=== PATIENT | female | born 1970 | race Caucasian/White ===

== ENCOUNTER 2020-05-30 23:30 | Emergency (ER) | payer OTHER ==
[~2020-05-30] VITALS: Ht 162.6 cm; Wt 94.5 kg
[2020-05-30] MEDS ORDERED: ASPIRIN CHEWABLE 81 MG TABLET. PO ONE (23:45)
[2020-05-30] MEDS ORDERED: NITROGLYCERIN SUBLINGUAL 0.4 MG BOTTLE OF 25. SL PRN (23:45)
--- NOTE | 2020-05-30 23:53 | PHYS DOC ---
Past History Past Medical History: CAD, Hypertension Adult General Chief Complaint Chief Complaint: CHEST PAIN HPI HPI Patient is a 50-year-old female presenting for chest pressure. Onset was earlier this morning after waking up while resting. Nothing known makes better or worse. Patient denies any pain but admits pressure over her left breast that radiates into her left jaw and left shoulder. Reports severity is 6/10 in severity but has improved with rest in our ER down to 4/10 in severity. Timing of symptoms has been constant since onset. States she has had similar chest pressure episodes for preceding "months", states she suffers these " a couple times a week" with each episode lasting less than 30 minutes and typically resolves with rest. Physical exertion does not make worse, she does not know any other propagating factors. Shannan had numerous stress tests with last performed approximately 5 years ago and unremarkable. Known CAD per heart catheterization performed 2013 without active intervention performed, this was done at [facility]. Has distant history of tobacco abuse in addition to positive family cardiac history. Episode today lasted longer than usual which concerned her and did not go away after 81 mg of aspirin prompting her to come to our facility for evaluation. Associated symptoms include shortness of breath during episodes and nausea. Denies Covid contact, fever, syncope, lightheadedness, GERD symptoms, abdominal pain, changes in bladder or bowel function. Review of Systems Review of Systems Fourteen body systems of review of systems have been reviewed. See HPI for pertinent positives and negative responses, other day all other systems are negative, non-pertinent or non-contributory Physical Exam Physical Exam Constitutional: Well developed, well nourished, no acute distress, non-toxic appearance. HENT: Normocephalic, atraumatic, bilateral external ears normal, oropharynx moist, no oral exudates, nose normal. Eyes: PERRLA, EOMI, conjunctiva normal, no discharge. Neck: Normal range of motion, no tenderness, supple, no stridor. Cardiovascular: Heart rate regular, sinus rhythm, no murmurs rubs or gallops Lungs & Thorax: Bilateral breath sounds clear to auscultation Abdomen: Bowel sounds normal, soft, no tenderness, no masses, no pulsatile masses. Nonsurgical abdomen, no peritoneal signs Skin: Warm, dry, no erythema, no rash. Back: No tenderness, no CVA tenderness. Extremities: No tenderness, no cyanosis, no clubbing, ROM intact, no edema. Neurologic: Alert and oriented X 3, grossly normal motor & sensory function, no focal deficits noted. Psychologic: Anxious affect, judgement normal, anxious mood Current Patient Data Vital Signs Vital Signs Date Time Temp Pulse Resp B/P (MAP) Pulse Ox O2 Delivery O2 Flow Rate FiO2 05/31/20 01:44 100 14 168/101 (123) 98 Room Air 05/30/20 23:30 98.7 Lab Results Laboratory Tests Test 05/31/20 00:01 05/31/20 00:04 White Blood Count 10.8 x10^3/uL (4.0-11.0) Red Blood Count 5.37 x10^6/uL (3.50-5.40) Hemoglobin 13.1 g/dL (12.0-15.5) Hematocrit 41.1 % (36.0-47.0) Mean Corpuscular Volume 76 fL (79-100) Mean Corpuscular Hemoglobin 24 pg (25-35) Mean Corpuscular Hemoglobin Concent 32 g/dL (31-37) Red Cell Distribution Width 16.5 % (11.5-14.5) Platelet Count 313 x10^3/uL (140-400) Neutrophils (%) (Auto) 74 % (31-73) Lymphocytes (%) (Auto) 16 % (24-48) Monocytes (%) (Auto) 8 % (0-9) Eosinophils (%) (Auto) 2 % (0-3) Basophils (%) (Auto) 0 % (0-3) Neutrophils # (Auto) 8.0 x10^3uL (1.8-7.7) Lymphocytes # (Auto) 1.8 x10^3/uL (1.0-4.8) Monocytes # (Auto) 0.8 x10^3/uL (0.0-1.1) Eosinophils # (Auto) 0.2 x10^3/uL (0.0-0.7) Basophils # (Auto) 0.0 x10^3/uL (0.0-0.2) D-Dimer (Tessa) 0.25 mg/L (0.00-0.50) Sodium Level 140 mmol/L (136-145) Potassium Level 4.0 mmol/L (3.5-5.1) Chloride Level 102 mmol/L (98-107) Carbon Dioxide Level 27 mmol/L (21-32) Anion Gap 11 (6-14) Blood Urea Nitrogen 15 mg/dL (7-20) Creatinine 1.1 mg/dL (0.6-1.0) Estimated GFR (Cockcroft-Gault) 53.0 BUN/Creatinine Ratio 14 (6-20) Glucose Level 101 mg/dL (70-99) Calcium Level 10.2 mg/dL (8.5-10.1) Total Bilirubin 0.2 mg/dL (0.2-1.0) Aspartate Amino Transf (AST/SGOT) 16 U/L (15-37) Alanine Aminotransferase (ALT/SGPT) 32 U/L (14-59) Alkaline Phosphatase 83 U/L (46-116) Troponin I Quantitative 0.116 ng/mL (0-0.055) Total Protein 7.6 g/dL (6.4-8.2) Albumin 4.0 g/dL (3.4-5.0) Albumin/Globulin Ratio 1.1 (1.0-1.7) Lipase 169 U/L (73-393) Bedside Urine HCG, Qualitative hcg negative (Negative) EKG EKG EKG ordered and interpreted by myself at 2343 hrs. as sinus rhythm at 97 bpm, unremarkable intervals, no axis deviation, no acute ischemic findings, no STEMI Radiology/Procedures Radiology/Procedures XR CHEST 1V 05/30/2020 12:08 AM INDICATION: Chest pain COMPARISON: None available TECHNIQUE: Portable frontal view of the chest is provided. FINDINGS: The cardiomediastinal silhouette is within normal limits. Lungs are clear. There are no significant pleural effusions. There is no pulmonary vascular congestion. No pneumothorax. No suspicious osseous abnormality. IMPRESSION: There is no acute cardiopulmonary process. Electronically signed by: Betty Perry MD (05/31/2020 12:19 AM) [facility] Heart Score HEART Score for Chest Pain: HEART Score for Chest Pain Response (Comments) Value History Slighlty/Non-Suspicious 0 ECG Normal 0 Age >45 - < 65 1 Risk Factors >3 Risk Factors or Hx CAD 2 Troponin >3 x Normal Limit 2 Total 5 Risk Factors: Risk Factors: DM, Current or recent (<one month) smoker, HTN, HLP, family history of CAD, obesity. Risk Scores: Risk Factors: DM, Current or recent (<one month) smoker, HTN, HLP, family history of CAD, obesity. Course & Med Decision Making Course & Med Decision Making Pertinent Labs and Imaging studies reviewed. (See chart for details) Discussed most likely diagnosis of NSTEMI. No obvious insult, infectious findings or other to explain increased troponin. She has numerous risk factors. She will require admission with cardiology consultation and consideration for further cardiac testing I contacted [facility] hospitalist who agreed need for transfer and admission at their facility for continued cardiac observation and cardiology consultation I updated patient on proposed plan of care and she was amenable to admission. Nonetheless, she is adamant about not transporting to [facility] via EMS given that she is hemodynamically stable stating her can drive h er. I advised against this and disclosed the risks of transporting via POV versus EMS, patient still refusing EMS transport at this time. She has full capacity to make this decision, patient to assume all risk and liability of transport via POV instead of EMS to [facility] for direct admission Dragon Disclaimer Dragon Disclaimer This electronic medical record was generated, in whole or in part, using a voice recognition dictation system. Departure Departure: Impression: Primary Impression: NSTEMI (non-ST elevated myocardial infarction) Additional Impression: History of coronary artery disease Disposition: 02 DC/TRF OTHER [facility] Admitting Physician: Other (dr malone) Condition: STABLE Referrals: ALLI ANGUIANO MD (PCP) Problem Qualifiers LUCI TRUJILLO DO May 30, 2020 23:53
--- NOTE | 2020-05-31 00:06 | EKG ---
[address] [address] Test Date: 2020-05-30 Test Time: 23:39:50 Pat Name: RUSSEL MIRANDA Department: Room: Gender: F Index Clerk: : 1970 Requested By: LUCI TRUJILLO Order Number: [id number] Reading MD: Measurements Intervals [place] Rate: 97 P: 47 TX: 132 QRS: 0 QRSD: 80 T: 39 QT: 340 QTc: 436 Interpretive Statements SINUS RHYTHM LEFTWARD AXIS OTHERWISE NORMAL ECG RI6.02 No previous ECG available for comparison
--- NOTE | 2020-05-31 00:22 | RAD ---
XR CHEST 1V 05/30/2020 12:08 AM INDICATION: Chest pain COMPARISON: None available TECHNIQUE: Portable frontal view of the chest is provided. FINDINGS: The cardiomediastinal silhouette is within normal limits. Lungs are clear. There are no significant pleural effusions. There is no pulmonary vascular congestion. No pneumothora x. No suspicious osseous abnormality. IMPRESSION: There is no acute cardiopulmonary process. Electronically signed by: Betty Perry MD (05/31/2020 12:19 AM) [facility]
[2020-05-31 00:31] LABS: BASO % 0 % (0-3); EOS # 0.2 x10^3/uL (0.0-0.7); EOS % 2 % (0-3); HEMATOCRIT 41.1 % (36.0-47.0); HEMOGLOBIN 13.1 g/dL (12.0-15.5); LYMPH # 1.8 x10^3/uL (1.0-4.8); LYMPH % 16 % (24-48); MEAN CORPUSCULAR HEMOGLOBIN 24 pg (25-35); MEAN CORPUSCULAR HGB CONC 32 g/dL (31-37); MEAN CORPUSCULAR VOLUME 76 fL (79-100); MONO # 0.8 x10^3/uL (0.0-1.1); MONO % 8 % (0-9); NEUT % 74 % (31-73); PLATELET COUNT 313 x10^3/uL (140-400); RED BLOOD COUNT 5.37 x10^6/uL (3.50-5.40); RED CELL DISTRIBUTION WIDTH 16.5 % (11.5-14.5); WHITE BLOOD COUNT 10.8 x10^3/uL (4.0-11.0)
[2020-05-31 00:40] LABS: CALCIUM 10.2 mg/dL (8.5-10.1); CREATININE 1.1 mg/dL (0.6-1.0)
[2020-05-31 00:46] LABS: ALBUMIN/GLOBULIN RATIO 1.1 (1.0-1.7); TOTAL BILIRUBIN 0.2 mg/dL (0.2-1.0); TOTAL PROTEIN 7.6 g/dL (6.4-8.2)
[2020-05-31 02:55] VITALS: BP 164/91
== END 2020-05-31 02:57 | disposition short-term general hospital (02) ==
LOC: ER 23:30
DX: I21.4 Non-ST elevation (NSTEMI) myocardial infarction (principal); I25.10 Atherosclerotic heart disease of native coronary artery without angina pectoris; I10 Essential (primary) hypertension; Z87.891 Personal history of nicotine dependence
CPT/HCPCS: 36415; 71045; 80053; 81025; 83690; 84484; 85025; 85379; 93005; 99291-25